=== PATIENT | male | born 1985 | race Caucasian/White ===

== ENCOUNTER 2019-01-04 16:01 | Emergency (ER) | payer OTHER ==
[2019-01-04 16:22] VITALS: BP 127/74
--- NOTE | 2019-01-04 17:07 | UC ---
Dental HPI - HPI Summary HPI Summary: 33 y/o male presents to the urgent care c/o RT upper jaw pain w/ mild swelling since yesterday. pt reports he has a molar w/ cavities and his dentist is in the middle of fixing 3 molar and this is the last one he was planning to work on. Pt is afraid of an abscess. Pain w/ chewing is 2/10 now, but is was worse last night. He has not taken any meds today. Pt denies fever, trismus, SOB, sore throat, chest pain, dizziness, abdominal pain, N/V/d. - History of Current Complaint Chief Complaint: UCDentalProblem Stated Complaint: TOOTHACHE Time Seen by Provider: 01/04/19 16:39 Hx Obtained From: Patient Onset/Duration: Gradual Onset, Lasting Days - 1 day, Worse Since - today Severity: Moderate Pain Intensity: 2 Pain Scale Used: 0-10 Numeric Aggravating Factor(s): Chewing Alleviating Factor(s): OTC Meds Related History: Swelling - mild aroudn molar w/ cavity in the Rt upper jaw - Allergies/Home Medications Allergies/Adverse Reactions: Allergies Allergy/AdvReac Type Severity Reaction Status Date / Time No Known Allergies Allergy Verified 01/04/19 16:22 PMH/Surg Hx/FS Hx/Imm Hx Previously Healthy: Yes - Pt denies PMHX - Surgical History Surgical History: Yes Surgery Procedure, Year, and Place: lt shoulder repair, rt maniscus, acl repair - Family History Known Family History: Positive: None - Pt denies FMHX - Social History Occupation: Employed Full-time Lives: With Family Alcohol Use: None Substance Use Type: None Smoking Status (MU): Light Every Day Tobacco Smoker Type: Cigarettes Review of Systems All Other Systems Reviewed And Are Negative: Yes Constitutional: Positive: Negative Skin: Positive: Negative Eyes: Positive: Negative ENT: Positive: Dental Pain - Rt upper jaw w/ a molar w/ cavity Respiratory: Positive: Negative Cardiovascular: Positive: Negative Gastrointestinal: Positive: Negative Genitourinary: Positive: Negative Motor: Positive: Negative Neurovascular: Positive: Negative Musculoskeletal: Positive: Negative Neurological: Positive: Negative Psychological: Positive: Negative Is Patient Immunocompromised?: No Physical Exam - Summary Physical Exam Summary: Vital Signs Reviewed: Yes General: Well-Appearing, Well-Nourished male sitting in the examining table w/ o any respiratory or pain distress Eyes: Positive: Conjunctiva Clear - PERRLA, EOMI, ENT: Positive: Normal ENT inspection, Hearing grossly normal, Pharynx normal, TMs normal - B/L external ear canals clear,. Negative: Tonsillar swelling, Tonsillar exudate, Trismus Dental: Positive: Gross Decay/Caries on molar #3 w/ gingival swelling and erythema, tender to percussion. involves tissue surrounding this molar, w/ positive anterior Cervical Lymphadenopathy. Neck: Positive: Supple Respiratory: Positive: Chest non-tender, Lungs clear, Normal breath sounds, No respiratory distress Cardiovascular: Positive: RRR, No Murmur, Pulses Normal, Brisk Capillary Refill Abdomen Description: Positive: Nontender, No Organomegaly, Soft. Negative: CVA Tenderness (R), CVA Tenderness (L) Bowel Sounds: Positive: Present Musculoskeletal: Positive: Strength Intact, ROM Intact, No Edema Neurological Exam: Normal Psychological Exam: Normal Skin Exam: Normal Triage Information Reviewed: Yes Vital Signs: Initial Vital Signs Temp 98.6 F 01/04/19 16:20 Pulse 98 01/04/19 16:20 Resp 18 01/04/19 16:20 BP 127/74 01/04/19 16:20 Pulse Ox 100 01/04/19 16:20 Dental Complaint Course/Dx - Course Course Of Treatment: 33 y/o male presents to the urgent care c/o RT upper jaw pain w/ mild swelling since yesterday. pt reports he has a molar w/ cavities and his dentist is in the middle of fixing 3 molar and this is the last one he was planning to work on. Pt is afraid of an abscess. Pain w/ chewing is 2/10 now, but is was worse last night. He has not taken any meds today. Pt denies fever, trismus, SOB, sore throat, chest pain, dizziness, abdominal pain, N/V/d. Hx obtained. Pt w/ Gross Decay/Caries on molar #3 w/ gingival swelling and erythema, tender to percussion. involves tissue surrounding theses molars, w/ positive anterior Cervical Lymphadenopathy on examination. Pt Rx Clindamycin PO and Ibuprofen PO as directed below. Pt strongly advised to f/u with Dentist as soon as possible for further evaluation and treatment. D/C instructions explained. Pt understood and agreed with plan of care. - Differential Dx/Diagnosis Differential Diagnosis/Dx: Dental Abscess, Dental Caries, Fractured Tooth, Odontogenic Pain, Peridontic Disease, Peritonsillar Abcess Provider Diagnosis: Dental abscess Discharge - Sign-Out/Discharge Documenting (check all that apply): Patient Departure - d/c home All imaging exams completed and their final reports reviewed: No Studies - Discharge Plan Condition: Stable Disposition: HOME Prescriptions: Clindamycin Cap(NF) [Clindamycin Cap 300 mg Cap(NF)] 300 mg PO TID #30 cap Ibuprofen TAB* [Motrin TAB* 800 MG] 800 mg PO Q6H PRN #30 tab PRN Reason: dental pain Patient Education Materials: Dental Abscess (ED) Referrals: [facility] [Outside] - 3 Days Additional Instructions: 1-Please take full course of antibiotics to avoid resistance. Take yogurts w/ probiotics or culturelle to protect you GI system 2- Take Ibuprofen PO q6-8hrs prn after meals to alleviate pain and swelling. 3- F/u with your Dentist or Dental List provided as soon as possible for further treatment. 4- If symptoms do not improve or worsen please return to the urgent care or f/u with your PCP in 3 days for further evaluation and treatment - Billing Disposition and Condition Condition: STABLE Disposition: Home - Attestation Statements Provider Attestation: I was available for consult. This patient was seen by the KISHOR. The patient was not presented to, seen by, or examined by me. -Ainsley
== END 2019-01-04 17:23 | disposition home or self-care (01) ==
LOC: UCEAST 16:01
DX: K04.7 Periapical abscess without sinus (principal); F17.210 Nicotine dependence, cigarettes, uncomplicated
CPT/HCPCS: 99202; G0463